=== PATIENT | male | born 1945 | race Caucasian/White ===

== ENCOUNTER 2022-04-03 16:56 | Inpatient (IN) ==
[2022-04-03 17:55] LABS: Basophils % 0.8 %; Eosinophils # 0.2 K/mcL (0.0-0.6); Eosinophils % 4.7 %; Hematocrit 43.9 % (37.5-50.1); Hemoglobin 15.1 g/dL (12.9-16.9); Immature Granulocytes % 0.2 % (0-4); Lymphocytes # 1.3 K/mcL (0.6-4.6); Lymphocytes % 26.2 %; Mean Corpuscular HGB Conc 34.4 g/dL (31.6-35.5); Mean Corpuscular Hemoglobin 31.3 pg (28.0-33.3); Mean Corpuscular Volume 91.1 fL (83.0-100.0); Mean Platelet Volume 8.8 fL (9.4-12.4); Monocytes # 0.4 K/mcL (0.0-1.3); Monocytes % 8.2 %; Neutrophils # 2.9 K/mcL (1.6-8.9); Platelet Count 174 K/mcL (140-400); Red Blood Count 4.82 M/mcL (4.19-5.50); Red Cell Distribution Width 12.8 % (11.5-14.5); Segmented Neutrophils % 59.9 %; White Blood Count 4.9 K/mcL (4.3-11.1)
[2022-04-03 18:11] LABS: BUN/Creatinine Ratio 19 (6-26); Blood Urea Nitrogen 22 mg/dL (8-23); Calcium 8.7 mg/dL (8.6-10.3); Carbon Dioxide 26 mEq/L (23-29); Chloride 107 mEq/L (98-107); Glucose 95 mg/dL (70-105); Osmolality,Calculated 293 (280-300); Potassium 4.3 mEq/L (3.5-5.1); Sodium 140 mEq/L (136-145); Troponin I < 0.03 ng/mL (< 0.04); eGFR For African Americans > 60 (> 60); eGFR For Non-African Americans > 60 (> 60)
[2022-04-03] MEDS ORDERED: Naloxone 0.4 MG/ML INJ IVP PRN (20:02)
[2022-04-03] MEDS ORDERED: Ondansetron ODT 4 MG TAB.RAPDIS SL PRN (20:02)
[2022-04-03] MEDS ORDERED: *HR* HYDROcodone/Acet 5/325 mg TABLET PO PRN (20:02)
[2022-04-03] MEDS ORDERED: Melatonin 3 MG TABLET PO PRN (20:02)
[2022-04-03] MEDS ORDERED: Acetaminophen 325 MG TABLET PO PRN (20:02)
[2022-04-03] MEDS ORDERED: *HR* OxyCODONE Immed Rel 5 MG TABLET PO PRN (20:02)
[2022-04-03] MEDS ORDERED: Dextrose Gel 15 GM/37.5 ML TUBE PO PRN ×2 (20:04)
[2022-04-03] MEDS ORDERED: *HR* Dextrose 50 % in Water (Syg) 50 ML SYRINGE IVP PRN (20:04)
[2022-04-03] MEDS ORDERED: D5% in Water 1,000 ML IVC PRN (20:04)
[2022-04-03 21:27] LABS: Influenza A PCR Negative (Negative); Influenza B PCR Negative (Negative); Resp. Syncytial Virus PCR Negative (Negative)
[2022-04-03 21:28] LABS: SARS-CoV-2 by PCR (In House) Negative (Negative)
[2022-04-04 01:51] LABS: Hematocrit 38.6 % (37.5-50.1); Mean Corpuscular HGB Conc 34.7 g/dL (31.6-35.5); Mean Corpuscular Hemoglobin 31.6 pg (28.0-33.3); Mean Platelet Volume 8.9 fL (9.4-12.4); Platelet Count 155 K/mcL (140-400); Red Blood Count 4.24 M/mcL (4.19-5.50); White Blood Count 4.6 K/mcL (4.3-11.1)
[2022-04-04 01:53] LABS: Hemoglobin 13.4 g/dL (12.9-16.9)
[2022-04-04 02:04] LABS: Estimated Average Glucose 97 mg/dl
[2022-04-04 02:23] LABS: BUN/Creatinine Ratio 18 (6-26); Blood Urea Nitrogen 20 mg/dL (8-23); Calcium 8.2 mg/dL (8.6-10.3); Carbon Dioxide 26 mEq/L (23-29); Chloride 107 mEq/L (98-107); Chol/HDL Ratio 3.4 (0-4.9); Cholesterol 131 mg/dL (< 200); Glucose 120 mg/dL (70-105); HDL Cholesterol 38 mg/dL (40-59); LDL Cholesterol,Calculated 79 mg/dL (< 100); Magnesium 2.2 mg/dL (1.6-2.6); Osmolality,Calculated 294 (280-300); Phosphorous 3.6 mg/dL (2.7-4.5); Potassium 3.8 mEq/L (3.5-5.1); Sodium 140 mEq/L (136-145); Triglycerides 72 mg/dL (< 150); eGFR For African Americans > 60 (> 60); eGFR For Non-African Americans > 60 (> 60)
[2022-04-04] MEDS: *HR* Ticagrelor 90 MG TABLET PO SCH (20:36)
[2022-04-05 01:41] LABS: Basophils % 0.8 %; Eosinophils # 0.2 K/mcL (0.0-0.6); Eosinophils % 4.6 %; Hemoglobin 13.8 g/dL (12.9-16.9); Immature Granulocytes % 0.2 % (0-4); Lymphocytes # 1.5 K/mcL (0.6-4.6); Lymphocytes % 27.8 %; Mean Corpuscular HGB Conc 35.4 g/dL (31.6-35.5); Mean Corpuscular Hemoglobin 31.9 pg (28.0-33.3); Mean Corpuscular Volume 90.1 fL (83.0-100.0); Mean Platelet Volume 8.9 fL (9.4-12.4); Monocytes # 0.4 K/mcL (0.0-1.3); Monocytes % 7.5 %; Neutrophils # 3.1 K/mcL (1.6-8.9); Platelet Count 153 K/mcL (140-400); Red Blood Count 4.33 M/mcL (4.19-5.50); Red Cell Distribution Width 12.7 % (11.5-14.5); Segmented Neutrophils % 59.1 %; White Blood Count 5.2 K/mcL (4.3-11.1)
[2022-04-05 02:02] LABS: BUN/Creatinine Ratio 17 (6-26); Blood Urea Nitrogen 19 mg/dL (8-23); Calcium 8.1 mg/dL (8.6-10.3); Carbon Dioxide 25 mEq/L (23-29); Chloride 107 mEq/L (98-107); Glucose 96 mg/dL (70-105); Osmolality,Calculated 288 (280-300); Potassium 4.1 mEq/L (3.5-5.1); Sodium 138 mEq/L (136-145); eGFR For African Americans > 60 (> 60); eGFR For Non-African Americans > 60 (> 60)
[2022-04-05] MEDS: *HR* Enoxaparin 40 MG/0.4 ML SYRINGE SQ SCH (05:58)
[2022-04-05 08:21] LABS: INR 1.1; Prothrombin Time 12.1 Seconds (9.4-12.1)
[2022-04-05] MEDS: *HR* Ticagrelor 90 MG TABLET PO SCH ×2 (08:30→20:08)
[2022-04-05] MEDS: Aspirin Enteric Coated 81 MG Tablet PO SCH (08:30)
[2022-04-05] MEDS ORDERED: Perflutren Lipid Microsphere 1.3 ML in 0.9 % Sodium Chloride 8.7 ML IVP PRN (08:56)
[2022-04-05] MEDS ORDERED: *HR* FentaNYL (PF) 100 MCG/2 ML VIAL ONE (13:00)
[2022-04-05] MEDS ORDERED: 0.9 % Sodium Chloride 2,000 ML ONE (13:00)
[2022-04-05] MEDS ORDERED: *HR* Midazolam HCl 2 MG/2 ML VIAL ONE (13:00)
[2022-04-05] MEDS ORDERED: *HR* Heparin 10,000 UNIT/10 ML VIAL ONE (13:01)
[2022-04-05] MEDS ORDERED: Nitroglycerin 1,000 MCG/5 ML VIAL IV ONE (13:01)
[2022-04-05] MEDS ORDERED: ISOVUE-370 200 ML INFUS..BTL ONE (13:01)
[2022-04-05] MEDS ORDERED: Heparin 1,000 UNITS/500 mL 500 ML ONE (13:01)
[2022-04-05] MEDS ORDERED: Tirofiban 12.5 MG/250ML 12.5 MG/250 ML BAG ONE (13:57)
[2022-04-05] MEDS ORDERED: Tirofiban 12.5 MG/250ML 12.5 MG/250 ML BAG IVC SCH (14:30)
[2022-04-06 02:34] LABS: eGFR For African Americans > 60 (> 60); eGFR For Non-African Americans > 60 (> 60)
[2022-04-06] MEDS: *HR* Enoxaparin 40 MG/0.4 ML SYRINGE SQ SCH (05:54)
[2022-04-06] MEDS: *HR* Ticagrelor 90 MG TABLET PO SCH (08:21)
[2022-04-06] MEDS: Aspirin Enteric Coated 81 MG Tablet PO SCH (08:23)
[2022-04-06 10:56] VITALS: BP 121/67; PULSE 69; TEMP 98.3; O2SAT 96
== END 2022-04-06 13:42 | disposition home or self-care (01) | DRG 251 ==
LOC: EMEROOARM 16:56 → 3BNU 16:56 → SUATTDRO 20:48 → 3BNU 21:33
PROVIDERS: ADMIT Family Medicine; ATTEND Registered Nurse